=== PATIENT | female | born 1985 | race Caucasian/White ===

== ENCOUNTER → 2018-01-19 | Outpatient (CLI) | payer OTHER ==
[~2018-01-19] MED LIST: AMOXICILLIN875 MG PO; BENADRYL25 M2 PO; HYDROCHLOROTHIA25 M1 PO; NAPROSYN500 MG PO; POTASSIUM CHLO20 ME4 PO; PREDNISONE20 M1 PO; SILVADENE1% TP; ZANTAC 150150 MG PO; [UNRECOGNIZED DRUG - REMARK] PO
== END | disposition home or self-care (01) ==
LOC: RAD 10:11
DX: M54.5 Low back pain (principal); Z90.710 Acquired absence of both cervix and uterus

== ENCOUNTER 2018-03-19 11:03 | Emergency (ER) | payer OTHER ==
[~2018-03-19] VITALS: Ht 182.8 cm; Wt 215.0 kg
[~2018-03-19 11:03] MED LIST changes: -AMOXICILLIN875 MG PO
[2018-03-19] MEDS ORDERED: AMOXICILLIN875 MG PO (11:14)
== END 2018-03-19 12:05 | disposition home or self-care (01) ==
LOC: ED 11:03
DX: K02.9 Dental caries, unspecified (principal); Z79.899 Other long term (current) drug therapy

== ENCOUNTER → 2022-06-07 | Outpatient (CLI) | payer OTHER ==
[~2022-06-07] MED LIST changes: +AMOXICILLIN875 MG PO
== END | disposition home or self-care (01) ==
LOC: CARD 10:30
PROVIDERS: ATTEND Physician Assistant
DX: E66.9 Obesity, unspecified (principal); M19.90 Unspecified osteoarthritis, unspecified site; R06.02 Shortness of breath

== ENCOUNTER → 2022-07-23 | Outpatient (CLI) | payer OTHER ==
[2022-07-23 17:12] LABS: BUN 12 mg/dl (9-23); CHLORIDE 100 mmol/L (98-107); POTASSIUM 3.8 mmol/L (3.4-5.1)
== END | disposition home or self-care (01) ==
LOC: LAB 16:20
PROVIDERS: ATTEND Physician Assistant
DX: U07.1 COVID-19 (principal)

== ENCOUNTER → 2023-05-12 | Outpatient (CLI) | payer OTHER ==
[~2023-05-12] MED LIST changes: +CIPRO500 MG PO; +ONDANSETRON4 MG SL
[2023-05-12 15:33] LABS: BUN 6 mg/dl (9-23); CHLORIDE 105 mmol/L (98-107)
[2023-05-12 15:37] LABS: POTASSIUM 2.4 mmol/L (3.4-5.1)
== END | disposition home or self-care (01) ==
LOC: LAB 14:54
PROVIDERS: ATTEND Nurse Practitioner Adult Health
DX: E87.6 Hypokalemia (principal)

== ENCOUNTER → 2023-05-17 | Outpatient (CLI) | payer OTHER ==
[2023-05-17 15:21] LABS: BUN 9 mg/dl (9-23); CHLORIDE 102 mmol/L (98-107); POTASSIUM 2.7 mmol/L (3.4-5.1)
== END | disposition home or self-care (01) ==
LOC: LAB 14:43
PROVIDERS: ATTEND Nurse Practitioner Adult Health
DX: E87.6 Hypokalemia (principal)

== ENCOUNTER 2024-08-13 06:59 | Emergency (ER) | payer OTHER | END 2024-08-13 07:46 | disposition home or self-care (01) | LOC: ED 06:59 | DX: S29.011A Strain of muscle and tendon of front wall of thorax, initial encounter (principal); Z79.899 Other long term (current) drug therapy; X50.1XXA Overexertion from prolonged static or awkward postures, initial encounter; Y93.89 Activity, other specified; Y92.89 Other specified places as the place of occurrence of the external cause; Y99.8 Other external cause status ==